=== PATIENT | female | born 1995 | race Caucasian/White ===

== ENCOUNTER 2019-01-17 14:40 | Emergency (ER) | payer OTHER ==
[~2019-01-17] VITALS: Ht 157.5 cm; Wt 56.7 kg
[2019-01-17] MEDS ORDERED: SPRINTEC1 EACH PO (14:52)
[2019-01-17] MEDS ORDERED: IBUPROFEN 600600 M1 PO (17:03)
[2019-01-17 17:32] VITALS: BP 117/74
== END 2019-01-17 17:33 | disposition home or self-care (01) ==
LOC: ER 14:40
DX: S06.0X0A Concussion without loss of consciousness, initial encounter (principal); S16.1XXA Strain of muscle, fascia and tendon at neck level, initial encounter; V89.2XXA Person injured in unspecified motor-vehicle accident, traffic, initial encounter; Y93.89 Activity, other specified; Y92.89 Other specified places as the place of occurrence of the external cause; Y99.8 Other external cause status